=== PATIENT | male | born 1960 | race Caucasian/White ===

== ENCOUNTER → 2018-03-18 | Outpatient (CLI) | payer OTHER | LOC: FIMAGING 08:47 | PROVIDERS: ATTEND Orthopaedic Surgery | DX: Z01.818 Encounter for other preprocedural examination (principal); M17.11 Unilateral primary osteoarthritis, right knee; M16.11 Unilateral primary osteoarthritis, right hip ==

== ENCOUNTER 2018-03-27 10:56 | Observation (INO) | payer OTHER ==
--- NOTE | 2018-03-27 06:21 | PDHPUP ---
History & Physical Update H&P update statement: This history and physical update is based on an assessment of the patient which was completed after admission or registration (within 24 hours), but prior to the surgery/procedure. H&P update: H&P reviewed & patient examined, no change in patient's condition since H&P completed
[~2018-03-27 10:56] MED LIST: ROPIVACAINE 0.2% 80 MG, EPINEPHrine 0.2 MG, KETOROLAC TROMETHAMINE 30 MG in SYRINGE 0 ML IU ONE; TRANEXAMIC ACID 3,000 MG in NS (SYRINGE) 50 ML IRR ONE; TRANEXAMIC ACID 3,000 MG/50 ML BAG IRR ONE; VANCOMYCIN 1 GM VIAL ONE
[2018-03-27] MEDS ORDERED: FAMOTIDINE 20 MG TAB PO ONE (11:17)
[2018-03-27] MEDS ORDERED: DEXAMETHASONE 4 MG/ML VIAL IVP ONE (11:17)
[2018-03-27] MEDS ORDERED: ACETAMINOPHEN 325 MG TAB PO ONE (11:17)
[2018-03-27] MEDS ORDERED: ceFAZolin 2 GM/DEXTROSE 100 ML IV ONE (11:17)
[2018-03-27] MEDS ORDERED: LR 1,000 ML IV ONE (11:19)
[2018-03-27] MEDS ORDERED: LIDOCAINE 1% 2 ML INJ ID PRN (11:19)
[2018-03-27] MEDS ORDERED: MIDAZOLAM 2 MG/2 ML VIAL IVP ONE (12:02)
--- NOTE | 2018-03-27 12:03 | PDANEPAE ---
ANE Past Medical History - Cardiovascular History Hx Hypertension: No Hx Arrhythmias: No Hx Chest Pain: No Hx Coronary Artery / Peripheral Vascular Disease: No Hx CHF / Valvular Disease: No Hx Palpitations: No - Pulmonary History Hx COPD: No Hx Asthma/Reactive Airway Disease: No Hx Recent Upper Respiratory Infection: No Hx Oxygen in Use at Home: No Hx Sleep Apnea: No Sleep Apnea Screening Result - Last Documented: Negative - Neurologic History Hx Cerebrovascular Accident: No Hx Seizures: No Hx Dementia: No - Endocrine History Hx Diabetes: No Obesity: mild - Renal History Hx Renal Disorders: No - Liver History Hx Hepatic Disorders: No - Neurological & Psychiatric Hx Hx Neurological and Psychiatric Disorders: No - Cancer History Hx Cancer: No - Congenital Disorder History Hx Congenital Disorders: No - GI History Hx Gastrointestinal Disorders: No - Other Health History Other Health History: OSTEOARTHRITIS - Chronic Pain History Chronic Pain: Yes (RT KNEE) - Surgical History Prior Surgeries: RT KNEE 2018. TONSILLECTOMY ANE Review of Systems Review of Systems: - Exercise capacity METS (RN): 4 METS ANE Patient History - Allergies Allergies/Adverse Reactions: No Known Allergies Allergy (Verified 03/27/18 11:25) - Home Medications Home medications: home medication list seen and reviewed Home Medications: diphenhydrAMINE [Benadryl 25 MG (*)] 25 mg PO HS PRN 03/27/18 [Last Taken 20:00] - Anes Hx Anes Hx: no prior problems - Smoking Hx Smoking Status: Never smoked ANE Labs/Vital Signs - Labs - CBC Platelet Count: 274 - Vital Signs Height: 193.04 cm Weight: 124.738 kg ANE Anesthesia Plan Anesthesia Plan: spinal Regional Anesthesia: adductor canal FNB
[2018-03-27] MEDS ORDERED: PROPOFOL/EMULSION 500 MG/50 ML BOTTLE IV ONE ×2 (12:48→13:34)
[2018-03-27] MEDS ORDERED: BUPIVACAINE/DEXTROSE 7.5MG/ML 2 ML SPINAL AMP SP ONE (12:49)
[2018-03-27] MEDS ORDERED: METOCLOPRAMIDE 10 MG/2 ML VIAL ONE (13:06)
[2018-03-27] MEDS ORDERED: RANITIDINE 50 MG/2 ML VIAL ONE (13:07)
[2018-03-27] MEDS ORDERED: ROPIVACAINE HCL 150 MG/30 ML INJ ONE (14:01)
[2018-03-27] MEDS ORDERED: LR 500 ML IV PRN (14:05)
[2018-03-27] MEDS ORDERED: HYDROmorphONE/DILAUDID 2 MG/ML INJ IVP PRN (14:05)
[2018-03-27] MEDS ORDERED: ALBUTEROL 3 ML DEYVIAL IH PRN (14:05)
[2018-03-27] MEDS ORDERED: MEPERIDINE 25 MG/0.5 ML AMP IVP PRN (14:05)
[2018-03-27] MEDS ORDERED: ONDANSETRON 4 MG/2 ML VIAL IVP PRN ×2 (14:05→14:16)
[2018-03-27] MEDS ORDERED: PROMETHAZINE HCL 25 MG/ML INJ IVP PRN ×2 (14:05→14:16)
[2018-03-27] MEDS ORDERED: fentaNYL 100 MCG/2 ML INJ IVP PRN (14:05)
[2018-03-27] MEDS ORDERED: DIAZEPAM 5 MG/ML 1 ML SYR IVP PRN (14:05)
[2018-03-27] MEDS ORDERED: METOCLOPRAMIDE 10 MG/2 ML VIAL IVP PRN ×2 (14:05→14:16)
[2018-03-27] MEDS ORDERED: NALOXONE HCL 0.4 MG/ML INJ IVP PRN (14:05)
[2018-03-27] MEDS ORDERED: ONDANSETRON DISINTEGRATING 4 MG TAB PO PRN (14:16)
[2018-03-27] MEDS ORDERED: PROMETHAZINE HCL 25 MG SUPPR PR PRN (14:16)
[2018-03-27] MEDS ORDERED: diphenhydrAMINE 25 MG CAP PO PRN (14:16)
[2018-03-27] MEDS ORDERED: CYCLOBENZAPRINE 10 MG TAB PO PRN (14:16)
[2018-03-27] MEDS ORDERED: BISACODYL 10 MG SUPP PR PRN (14:16)
[2018-03-27] MEDS ORDERED: TEMAZEPAM 15 MG CAP PO PRN (14:16)
[2018-03-27] MEDS ORDERED: MAGNESIUM HYDROXIDE 30 ML UDCUP PO PRN (14:16)
[2018-03-27] MEDS ORDERED: DIPHENOXYLATE/ATROPINE LOMOTIL 1 TAB PO PRN (14:16)
[2018-03-27] MEDS ORDERED: POLYETHYLENE GLYCOL 3350 17 GM PKT PO PRN (14:16)
[2018-03-27] MEDS ORDERED: LACTULOSE 20 GM/30 ML UDCUP PO PRN (14:16)
--- NOTE | 2018-03-27 14:16 | POSTOPPROG ---
Post Op Note Date of Operation: 03/27/18 Surgeon: Kavitha Fine Call Taker: maverick fine PA-C and Cheryl Atkins PA-C Anesthesiologist: dr. caruso Anesthesia: Spinal, Other (Specify) (adductor canal block) Pre-op Diagnosis: right knee OA Post-op Diagnosis: same Indication: right knee pain Procedure: right medial partial knee arthroplasty with robot assistance Findings: severe medial knee OA Inf/Abcess present in the surg proc area at time of surgery?: No EBL: 50-100
[2018-03-27] MEDS ORDERED: LR 1,000 ML IV SCH (14:30)
--- NOTE | 2018-03-27 14:42 | POSTANESTH ---
Post Anesthetic Evaluation Cardiovascular Status: Normal, Stable Respiratory Status: Normal, Stable Level of Consciousness/Mental Status: Can Participate in Eval Pain Control: Adequate, Prn Tx Ordered Nausea/Vomiting Control: Adequate, Prn Tx Ordered Complications Possibly Related to Anesthesia: None Noted
[2018-03-27] MEDS: ACETAMINOPHEN 325 MG TAB PO SCH ×2 (18:00→23:57)
[2018-03-27] MEDS: SENNOSIDES/DOCUSATE SODIUM TAB PO SCH (22:36)
[2018-03-27] MEDS: FAMOTIDINE 20 MG TAB PO SCH (22:36)
[2018-03-27] MEDS: ASPIRIN 81 MG CHEWABLE TAB PO SCH (22:36)
[2018-03-27] MEDS: ceFAZolin 2 GM/DEXTROSE 100 ML IV SCH (22:38)
[2018-03-27] MEDS: oxyCODONE IR 5 MG TAB PO PRN (23:02)
[2018-03-28] MEDS: oxyCODONE IR 5 MG TAB PO PRN (00:04)
[2018-03-28] MEDS: ceFAZolin 2 GM/DEXTROSE 100 ML IV SCH (05:16)
[2018-03-28] MEDS: ACETAMINOPHEN 325 MG TAB PO SCH ×2 (05:16→12:49)
[2018-03-28 07:34] VITALS: BP 119/72
[2018-03-28] MEDS: ASPIRIN 81 MG CHEWABLE TAB PO SCH (08:21)
[2018-03-28] MEDS: SENNOSIDES/DOCUSATE SODIUM TAB PO SCH (08:22)
[2018-03-28] MEDS: FAMOTIDINE 20 MG TAB PO SCH (08:22)
--- NOTE | 2018-03-28 08:45 | SOAPPROG ---
SOAP Progress Note Assessment/Plan: Assessment: Patient is doing well POD 1 s/p R med PKA Pain management: pain is well controlled on oral pain meds. VTE ppx: recommend aspirin 81 mg BID for 4 weeks, cont ISELA and SCDs Anemia: level is expected initially postop. Asymptomatic. Continue to monitor D/c planning: Patient has done better than anticipated and would like to be discharged to home today. Patient must be released from PT before discharge to home. Plan: 03/28/18 08:45 Subjective: patient is doing well today, denies SOB, chest pain and N/V Objective: Vital Signs Temp Pulse Resp BP Pulse Ox 36.4 C 61 14 119/72 95 03/28/18 07:33 03/28/18 07:33 03/28/18 07:33 03/28/18 07:33 03/28/18 07:33 Laboratory Results 03/28/18 04:26 03/27/18 03/28/18 03/29/18 05:59 05:59 05:59 Intake Total 2520 145 Output Total 320 400 Balance 2200 -255 RLE: incision dressing is clean and dry, NVI, +pf/df ICD10 Worksheet Patient Problems: Problems Problem Status Onset Primary localized osteoarthritis of right knee Acute
--- NOTE | 2018-03-28 09:07 | GDS ---
[f rep st] DISCHARGE SUMMARY ADMISSION DIAGNOSIS: Right knee osteoarthritis. DISCHARGE DIAGNOSIS: Right knee osteoarthritis. PROCEDURE: Right partial knee arthroplasty, medial compartment, robotic assisted. VTE PROPHYLAXIS: Recommend aspirin 8I mg twice daily for 4 weeks. BRIEF DESCRIPTION OF HOSPITAL STAY: Patient was admitted for an elective joint arthroplasty. The pa nidia tolerated the procedure well and has passed physical therapy. The patient was given appropriat e antibiotic prophylaxis and venous thromboembolism prophylaxis. The patient's pain was well control led on oral pain medication, patient was holding down food, and had urinated. Decision was made to d ischarge the patient. The patient was given post-operative prescriptions pre-operatively. PLAN: To follow up as scheduled with Dr. Braxton's office April 15 at 11:45 a.m. /[id number]/MODL
--- NOTE | 2018-03-28 09:17 | GOP ---
[f rep st] OPERATIVE REPORT DATE OF OPERATION: 03/27/2018 SURGEON: Latoya Braxton MD MECHANICAL ENERGY ENGINEER: 1. Tiffani Braxton, PAC. 2. SURY Arora. ANESTHESIA: Spinal. PREOPERATIVE DIAGNOSIS: Right knee osteoarthritis. POSTOPERATIVE DIAGNOSIS: Right knee osteoarthritis. PROCEDURE PERFORMED: Right medial compartment partial replacement with computer navigation, robotic assist, DEVAN uni-knee. FINDINGS: ESTIMATED BLOOD LOSS: 30 cc. INDICATIONS: This is a 57 year old male with progressive pain of the right knee unresponsive to cons ervative care. Risks and benefits of surgical intervention were explained in detail. DESCRIPTION OF PROCEDURE: The patient was brought to the operating room and placed on the table in s upine position. Spinal anesthesia was induced without difficulty. A pneumatic tourniquet was applie d about the right proximal thigh and the leg was prepped and draped in sterile fashion. Attention wa s turned first to the distal aspect of the right femur. At 3 cm proximal to the lateral rise of the femur, 2 percutaneous half pins were placed for fixation of the femoral array. In a similar fashion, 2 pins were placed anterolateral on the tibia for fixation of the tibial array. External land kristina ng and registration of the hip center was performed without difficulty. After exsanguination by elevation, the tourniquet was inflated to 250 mmHg. Incision was made from the tibial tuberosity to the superior pole of the patella. Dissection was car ried out through the subcutaneous tissue to the deep fascia using Bovie electrocautery for hemostasis . Medial parapatellar arthrotomy was carried out to the superior pole of the patella. The medial co llateral ligament was elevated and the infrapatellar fat pad was resected. Internal femoral and tibi al registration was carried out without difficulty and the femoral and tibial checkpoints were placed and verified for accuracy. Attention was turned to the femur. The foot print for the size 5 femoral component was cut with the 6 mm bur using the [employer] robotic system and verified for accuracy against the CT based plan. The hole was cut for the femoral post. In a similar fashion, the 6 mm bur was used to cut the foot print for t he size 5 tibial component using the [employer] system and verified for accuracy against the CT based plan. Attention was turned to the posterior aspect of the knee and remnants of the medial meniscus were exc ised. The posterior capsule was injected with ropivacaine, epinephrine and Toradol. Trial reduction was carried out and there was excellent range of motion, alignment and stability using the size 5 fe moral component and the size 5 tibial component, 5 x 8 polyethylene. All trials were then removed. The joint was thoroughly irrigated and carefully dried. One package o f cement and 1 gram of vancomycin were mixed in the vacuum mixer and placed on the fixation surfaces of all components. The components were implanted and all excess cement was thoroughly removed. Impla nt placement was verified against the CT view plan and found to be excellent. The tourniquet was deflated and all bleeders were coagulated. The wound was thoroughly irrigated and closed using interrupted sutures of 2-0 Vicryl for the joint capsule. The subcu was closed with 3-0 Vicryl and the skin with 4-0 Monocryl. Dermabond and Steri-Strips were applied, followed by a compr essive dressing. The patient was then moved from the operating room to the recovery room in good con dition, having tolerated the procedure well. CASE CLASSIFICATION: Clean. /[id number]/MODL
--- NOTE | 2018-03-28 10:48 | ASMTLACE ---
FILOMENA Length of stay for Answers: 2 days current admission Acuity / Level of Answers: No Care: Did the patient have an inpatient admission? # of Emergency department Answers: 0 visits in the last 6 months Score: 2 Date Signed: 03/28/2018 10:48 AM Electronically Signed By:DIANA Fraire
== END 2018-03-28 13:06 | disposition home or self-care (01) ==
LOC: F3N 10:56
PROVIDERS: ADMIT Orthopaedic Surgery; ATTEND Orthopaedic Surgery
DX: M17.11 Unilateral primary osteoarthritis, right knee (principal)
CPT/HCPCS: 27446; 73560; 97110; 97161; G0378; C1713; J0171; J0690; J1100; J1885; J2250; J2704; J2765; J2780; J2795; J3370